=== PATIENT | female | born 1935 | race Caucasian/White ===

== ENCOUNTER 2018-02-19 13:05 | Emergency (ER) | payer MEDICARE, BC ==
[2018-02-19] MEDS ORDERED: Sodium Chloride 0.9% 5 ML Syringe FLUSH PRN (13:12)
--- NOTE | 2018-02-19 13:25 | EDM.PDOC ---
ED HPI GENERAL MEDICAL PROBLEM - General Chief Complaint: Syncope Stated Complaint: Syncope Time Seen by Provider: 02/19/18 13:14 Source of Information: Reports: Patient, EMS History Limitations: Reports: No Limitations - History of Present Illness INITIAL COMMENTS - FREE TEXT/NARRATIVE: 83 YO WF presents to ER by EMS after a syncopal episode while at the grocery store today. Pt states she remembers driving to the store but doesn't recall any events until paramedics arrived. Pt with PMH of NIDDM and HTN. Pt states she feels dizzy. Pt denies any weakness, no chest pain, no shortness of breath no recent illness- no N/V/D or fevers. Pt denies any headache but states her vision is a little blurry. Pt denies any neck pain or musculoskeletal injuries from her fall. Onset: Sudden Onset Date: 02/19/18 Location: Denies: Head, Face, Neck, Chest, Abdomen, Back, Pelvis, Upper Extremity, Left, Upper Extremity, Right, Lower Extremity, Left, Lower Extremity , Right Severity: Mild Improves with: Reports: None Worsens with: Reports: None Associated Symptoms: Denies: Confusion, Chest Pain, Cough, Diaphoresis, Headaches, Malaise, Nausea/Vomiting, Seizure, Shortness of Breath, Weakness Left Posterior Head Pain Score (Numeric/FACES): 2 - Related Data Allergies Allergy/AdvReac Type Severity Reaction Status Date / Time levofloxacin [From Levaquin] Allergy UNKNOWN Verified 02/19/18 13:46 Penicillins Allergy UNKNOWN Verified 02/19/18 13:46 Ieqyrqr-Hki-Hnq Reductase Allergy UNKNOWN Verified 02/19/18 13:46 Inhibitor Sulfa (Sulfonamide Allergy GI UPSET Verified 02/19/18 13:46 Antibiotics) Home Meds: Home Meds Aspirin [Halfprin] 81 mg PO BRK 04/07/16 [History] Hydrochlorothiazide 12.5 mg PO DAILY 04/07/16 [History] Levothyroxine 25 mcg PO ACBREAKFAST 04/07/16 [History] Metoprolol Succinate [Toprol XL] 100 mg PO DAILY 04/07/16 [History] Vit A/Vit C/Vit E/Zinc/Copper [Preservision] 2 tab PO DAILY 04/07/16 [History] metFORMIN [Glucophage XR] 500 mg PO BIDMEALS 04/07/16 [History] Losartan [Cozaar] 100 mg PO DAILY 06/09/16 [History] Social & Family History - Caffeine Use Caffeine Use: Reports: Coffee, Soda ED ROS GENERAL - Review of Systems Review Of Systems: See Below Constitutional: Reports: No Symptoms HEENT: Reports: No Symptoms Respiratory: Reports: No Symptoms Cardiovascular: Reports: No Symptoms Endocrine: Reports: No Symptoms GI/Abdominal: Reports: No Symptoms : Reports: No Symptoms Musculoskeletal: Reports: No Symptoms Skin: Reports: No Symptoms Neurological: Reports: No Symptoms Psychiatric: Reports: No Symptoms Hematologic/Lymphatic: Reports: No Symptoms Immunologic: Reports: No Symptoms - Physical Exam Exam: See Below Exam Limited By: No Limitations General Appearance: Alert, WD/WN, No Apparent Distress Eye Exam: Bilateral Eye: EOMI, PERRL Throat/Mouth: Normal Inspection, Normal Lips, Normal Teeth, Normal Gums, Normal Oropharynx, Normal Voice, No Airway Compromise Head Exam: Normocephalic, Scalp Swelling, Scalp Abrasions. No: Scalp Lacerations Neck: Normal Inspection, Supple, Non-Tender, Full Range of Motion Respiratory/Chest: No Respiratory Distress, Lungs Clear, Normal Breath Sounds, No Accessory Muscle Use, Chest Non-Tender Cardiovascular: Normal Peripheral Pulses, Regular Rate, Rhythm, No Edema, No Gallop, No JVD, No Murmur, No Rub GI/Abdominal: Normal Bowel Sounds, Soft, Non-Tender, No Organomegaly, No Distention, No Abnormal Bruit, No Mass Neuro Exam (Abbreviated): Alert, Oriented, CN II-XII Intact, Normal Cognition, Normal Gait, Normal Reflexes, No Motor/Sensory Deficits Back Exam: Normal Inspection, Full Range of Motion, NT Extremities: Normal Inspection, Normal Range of Motion, Non-Tender, No Pedal Edema, Normal Capillary Refill Psychiatric: Normal Affect, Normal Mood Skin Exam: Warm, Dry, Intact, Normal Color, No Rash EKG INTERPRETATION EKG Date: 02/19/18 Time: 14:02 Rhythm: NSR Rate (Beats/Min): 81 [place]: Normal P-Wave: Present QRS: LBBB ST-T: Normal QT: Normal Comparison: NA - No Prior EKG Course - Vital Signs Last Recorded V/S: Last Vital Signs Temp 36.6 C 02/19/18 13:29 Pulse 74 02/19/18 13:29 Resp 20 02/19/18 13:29 BP 148/78 H 02/19/18 13:29 Pulse Ox 94 L 02/19/18 13:29 - Orders/Labs/Meds Orders: Active Orders 24 hr Category Date Time Status Cardiac Monitoring [RC] . DIRECTED Care 02/19/18 13:12 Active EKG Documentation Completion [RC] ASDIRECTED Care 02/19/18 13:13 Active Oxygen Therapy Adult [Oxygen Therapy, ED] [RC] Care 02/19/18 13:12 Active ASDIRECTED Peripheral IV Care [RC] . DIRECTED Care 02/19/18 13:13 Active Chest 1V Frontal [CR] Stat Exams 02/19/18 13:12 Taken Head wo Cont [CT] Stat Exams 02/19/18 13:12 Taken Sodium Chloride 0.9% [Syrex Flush] Med 02/19/18 13:12 Active 5 ml FLUSH Q8HR PRN Peripheral IV Insertion Adult [OM.PC] Routine Oth 02/19/18 13:12 Ordered EKG 12 Lead [EK] Routine Ther 02/19/18 13:12 Ordered Medication Orders Sodium Chloride (Syrex Flush) 5 ml FLUSH Q8HR PRN PRN Reason: Keep Vein Open Labs: Laboratory Tests 02/19/18 02/19/18 02/19/18 Range/Units 13:15 13:15 13:15 WBC 9.8 (5.0-10.0) 10^3/uL RBC 4.79 (3.80-5.50) 10^6/uL Hgb 14.8 (12.0-16.0) g/dL Hct 45.0 (37.0-47.0) % MCV 93.9 H (82.0-92.0) fL MCH 30.8 (27.0-31.0) pg MCHC 32.8 (32.0-36.0) g/dL RDW 13.1 (11.5-14.5) % Plt Count 256 (150-300) 10^3/uL MPV 8.0 (7.4-10.4) fL Neut % (Auto) 69.9 (50.0-70.0) % Lymph % (Auto) 22.1 (20.0-40.0) % [place] % (Auto) 6.2 (2.0-8.0) % Eos % (Auto) 1.1 (1.0-3.0) % Baso % (Auto) 0.7 (0.0-1.0) % Neut # (Auto) 6.8 (2.5-7.0) 10^3/uL Lymph # (Auto) 2.2 (1.0-4.0) 10^3/uL [place] # (Auto) 0.6 (0.1-0.8) 10^3/uL Eos # (Auto) 0.1 (0.1-0.3) 10^3/uL Baso # (Auto) 0.1 (0.0-0.1) 10^3/uL PT 9.5 (8.9-11.4) SEC INR 0.9 (0.9-1.1) APTT 23.2 (20.8-31.2) SEC Sodium 142 (136-145) mmol/L Potassium 4.0 (3.3-5.3) mmol/L Chloride 103 (98-115) mmol/L Carbon Dioxide 27.4 (21.0-32.0) mmol/L BUN 20 (6-25) mg/dL Creatinine 0.73 (0.51-1.17) mg/dL Est Cr Clr Drug Dosing 62.04 mL/min Estimated GFR (MDRD) > 60 mL/min Glucose 185 H (70-110) mg/dL Calcium 9.4 (8.7-10.3) mg/dL Total Bilirubin 0.5 (0.2-1.0) mg/dL AST 19 (15-37) U/L ALT 19 (12-78) U/L Alkaline Phosphatase 122 H (46-116) IU/L Creatine Kinase 22 L (26-276) U/L CK-MB (CK-2) 0.70 (0.00-4.30) ng/mL Troponin I < 0.04 (0.00-0.070) ng/mL B-Natriuretic Peptide 100 (0-100) pg/mL Total Protein 6.5 (6.4-8.2) g/dL Albumin 2.99 L (3.00-4.80) g/dL Meds: Medications Generic Name Dose Route Start Last Admin Trade Name Freq PRN Reason Stop Dose Admin Sodium Chloride 5 ml 02/19/18 13:12 Syrex Flush FLUSH Q8HR PRN Keep Vein Open Discontinued Medications Generic Name Dose Route Start Last Admin Trade Name Freq PRN Reason Stop Dose Admin Ondansetron HCl Confirm 02/19/18 14:23 Zofran Administered 02/19/18 14:24 Dose 4 mg .ROUTE .Aviary ONE - Radiology Interpretation Free Text/Narrative:: CT Head- 8mm right sided subdural hematoma with leftward shift about 6mm; right frontotemporal subarachnoid CXR- NAD Departure - Departure Time of Disposition: 14:27 Disposition: DC/Tfer to Acute Hospital 02 Condition: Critical Clinical Impression: Subdural hematoma, Subarachnoid bleed Syncope Qualifiers: Encounter type: initial encounter - Discharge Information Referrals: Karena Dacosta, MAGNETIC TAPE COMPOSER OPERATOR [Primary Care Provider] - Forms: ED Department Discharge, Interfacility Transfer EMTALA - My Orders Last 24 Hours: My Active Orders 02/19/18 13:12 Cardiac Monitoring [RC] . DIRECTED Oxygen Therapy Adult [Oxygen Therapy, ED] [RC] ASDIRECTED Chest 1V Frontal [CR] Stat Head wo Cont [CT] Stat Sodium Chloride 0.9% [Syrex Flush] 5 ml FLUSH Q8HR PRN Peripheral IV Insertion Adult [OM.PC] Routine EKG 12 Lead [EK] Routine 02/19/18 13:13 EKG Documentation Completion [RC] ASDIRECTED Peripheral IV Care [RC] . DIRECTED - Assessment/Plan Last 24 Hours: My Active Orders 02/19/18 13:12 Cardiac Monitoring [RC] . DIRECTED Oxygen Therapy Adult [Oxygen Therapy, ED] [RC] ASDIRECTED Chest 1V Frontal [CR] Stat Head wo Cont [CT] Stat Sodium Chloride 0.9% [Syrex Flush] 5 ml FLUSH Q8HR PRN Peripheral IV Insertion Adult [OM.PC] Routine EKG 12 Lead [EK] Routine 02/19/18 13:13 EKG Documentation Completion [RC] ASDIRECTED Peripheral IV Care [RC] . DIRECTED Assessment:: 1, Subdural hematoma 2. small right subarachnoid bleed 3. syncopal episode Plan: 1. Transfer to [facility] for acute neurosurgical evaluation 2. DNR per son and living will 3. supportive care
[2018-02-19 13:52] VITALS: BP 148/78
[2018-02-19 14:01] LABS: CHLORIDE,CL 103 mmol/L (98-115); SODIUM,NA 142 mmol/L (136-145)
[2018-02-19] MEDS ORDERED: NACL IV ONE ×2 (14:06)
[2018-02-19] MEDS ORDERED: LEVETIRACETAM IV ONE ×2 (14:06)
[2018-02-19] MEDS ORDERED: Ondansetron 4 MG/2 ML SDV ONE (14:23)
[2018-02-19] MEDS ORDERED: levETIRAcetam 500 MG in Sodium Chloride 0.9% 100 ML IV ONE (14:43)
[2018-02-19] MEDS ORDERED: Ondansetron 4 MG/2 ML SDV IVPUSH ONE (14:43)
[2018-02-19] MEDS ORDERED: Sodium Chloride 0.9% 1,000 ML IV ONE (14:45)
== END 2018-02-19 15:20 ==
LOC: KA.ED 13:05
DX: R55 Syncope and collapse (principal); S06.6X9A Traumatic subarachnoid hemorrhage with loss of consciousness of unspecified duration, initial encounter; Z88.1 Allergy status to other antibiotic agents; Z88.0 Allergy status to penicillin; Z88.2 Allergy status to sulfonamides; Z79.899 Other long term (current) drug therapy; X58.XXXA Exposure to other specified factors, initial encounter
CPT/HCPCS: 36415; 70450; 71045; 80053; 82550; 82553; 83880; 84484; 85025; 85610; 85730; 93005; 96374; 96375; 99285; J2405; J7030

== ENCOUNTER 2018-03-01 12:00 | Inpatient (IN) | payer MEDICARE, BC ==
[2018-03-01] MEDS: Acetaminophen 500 MG Tab PO SCH (21:05)
[2018-03-02] MEDS: Levothyroxine 25 MCG Tab PO SCH (08:25)
[2018-03-02] MEDS: Acetaminophen 500 MG Tab PO SCH ×3 (08:26→21:03)
[2018-03-02] MEDS: metFORMIN 500 MG Tab PO SCH ×2 (08:26→19:43)
[2018-03-02] MEDS: Carvedilol 12.5 MG Tab PO SCH ×2 (08:27→19:43)
[2018-03-02] MEDS: amLODIPine 5 MG Tab PO SCH (08:28)
[2018-03-02] MEDS: Losartan 50 MG Tab PO SCH (08:31)
[2018-03-02] MEDS: Lutein/Minerals/Vitamins A, C & E Tab PO SCH (08:31)
[2018-03-02] MEDS ORDERED: Hydrochlorothiazide 25 MG Tab PO SCH (09:00)
--- NOTE | 2018-03-02 13:35 | PCM.HP ---
H&P History of Present Illness - General Date of Service: 03/02/18 Admit Problem/Dx: Admission Diagnosis/Problem Admission Diagnosis/Problem Debility Source of Information: Patient, Old Records History Limitations: Reports: Altered Mental Status - History of Present Illness Initial Comments - Free Text/Narative: Ms. Sen reports a mild headache this morning, not worse than prior, but persistent. She otherwise denies any complaints. She believes she is at [facility] and does not know the date or month, but is able to state her name and birthdate. She states she has been told she had a fall and hit her head, but doesn't remember anything about the incident. Nursing reports that her sons were at bedside earlier today and stated that her mentation waxes and wanes, as it has since her fall, but is stable in comparison to the last few days. Nursing reports that she is at least a 1 person assist with transfers and ambulation. Her sons state that she didn't have dementia or significant memory problems before her accident. - Related Data Allergies/Adverse Reactions: Allergies Allergy/AdvReac Type Severity Reaction Status Date / Time levofloxacin [From Levaquin] Allergy UNKNOWN Verified 03/01/18 13:21 Penicillins Allergy UNKNOWN Verified 03/01/18 13:21 Kvztzls-Hpk-Tmj Reductase Allergy UNKNOWN Verified 03/01/18 13:21 Inhibitor Sulfa (Sulfonamide Allergy GI UPSET Verified 03/01/18 13:21 Antibiotics) Home Medications: Home Meds Hydrochlorothiazide 25 mg PO DAILY 04/07/16 [History] Levothyroxine 25 mcg PO ACBREAKFAST 04/07/16 [History] Losartan [Cozaar] 100 mg PO DAILY 06/09/16 [History] Acetaminophen [Tylenol Extra Strength] 1,000 mg PO TID 03/01/18 [History] Carvedilol [Coreg] 25 mg PO BIDMEALS 03/01/18 [History] Insulin Glarg,Human.Rec.Analog [Lantus Solostar] 10 unit SQ DAILY 03/01/18 [ History] Lutein/Minerals/Vit A,C & E [Ocuvite] 2 tab PO DAILY 03/01/18 [History] amLODIPine Besylate [Norvasc] 10 mg PO DAILY 03/01/18 [History] metFORMIN [Glucophage] 500 mg PO BIDMEALS 03/01/18 [History] Past Medical History HEENT History: Reports: Macular Degeneration Cardiovascular History: Reports: High Cholesterol, Hypertension, Pulmonary Hypertension, Other (See Below) Other Cardiovascular History: palpitations Genitourinary History: Reports: Urinary Incontinence 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: Neurological History: Reports: Head Trauma, Speech Problems, Other (See Below) Other Neuro History: subdural hematoma with subarachnoidal bleed Psychiatric History: Reports: None Endocrine/Metabolic History: Reports: Diabetes, Type II, Hypothyroidism Oncologic (Cancer) History: Reports: Basal Cell Carcinoma, Breast Dermatologic History: Reports: Other (See Below) Other Dermatologic History: basal cell cancer of the skin - Infectious Disease History Infectious Disease History: Reports: Other (See Below) Other Infectious Disease History: pt does not know - Past Surgical History HEENT Surgical History: Reports: None Cardiovascular Surgical History: Reports: None GI Surgical History: Reports: Cholecystectomy Female Surgical History: Reports: Breast Biopsy, Mastectomy Neurological Surgical History: Reports: None Musculoskeletal Surgical History: Reports: Knee Replacement Oncologic Surgical History: Reports: Biopsy of Breast, Mastectomy Dermatological Surgical History: Reports: Skin Biopsy Social & Family History - Family History Cardiac: Reports: CAD (brother and sister) - Tobacco Use Smoking Status *Q: Never Smoker Second Hand Smoke Exposure: No - Caffeine Use Caffeine Use: Reports: Coffee, Soda - Recreational Drug Use Recreational Drug Use: No H&P Review of Systems - Review of Systems: Review Of Systems: See Below General: Reports: Weakness. Denies: Fever, Chills, Decreased Appetite HEENT: Reports: Headaches. Denies: Ear Pain, Eye Pain, Sore Throat Pulmonary: Denies: Shortness of Breath, Pleuritic Chest Pain, Cough, Sputum Cardiovascular: Denies: Chest Pain, Palpitations, Edema, Lightheadedness, Syncope Gastrointestinal: Denies: Abdominal Pain, Constipation, Diarrhea, Difficulty Swallowing, Nausea, Vomiting Genitourinary: Denies: Dysuria, Burning, Pain Musculoskeletal: Denies: Neck Pain, Back Pain, Joint Pain Skin: Reports: Bruising. Denies: Rash, Wound Psychiatric: Reports: Confusion, Hallucinations (Visual). Denies: Anxiety, Hallucinations (Auditory) Neurological: Reports: Confusion, Headache, Trouble Speaking, Weakness. Denies : Numbness, Seizure, Syncope, Tingling, Tremors Hematologic/Lymphatic: Reports: Easy Bleeding, Easy Bruising Exam - Exam Exam: See Below - Vital Signs Vital Signs: Last Vital Signs Temp 37.3 C 03/02/18 06:56 Pulse 76 03/02/18 11:00 Resp 18 03/02/18 06:56 BP 172/85 H 03/02/18 11:00 Pulse Ox 94 L 03/02/18 06:56 Weight: 97.324 kg - Exam Physical Exam Comments:: GENERAL: Elderly white female sitting in bedside chair in no acute distress. HEENT: Conjunctiva clear. PERRLA. EOMI with significant prompting to follow direction. Nares patent without discharge. Mucous membranes moist, posterior pharynx unremarkable. NECK: Supple, no masses. CV: Regular rate and rhythm, no murmurs, rubs, or gallops. 2+ radial pulses. PULMONARY: Normal effort, clear to auscultation bilaterally, no wheezes, rales, or rhonchi. ABDOMEN: Positive bowel sounds, soft, nontender, nondistended. EXTREMITIES: No edema, cyanosis, or clubbing. MUSCULOSKELETAL: Moves all extremities well. NEUROLOGICAL: CN II-XII intact. Strength 5/5 in distal extremities. Sensation to light touch intact in distal extremities. DTRs 2+/4. Babinski downgoing. No clonus. Coordination and gait not tested. DERMATOLOGIC: No rashes or suspicious lesions in exposed areas. PSYCHIATRIC: Alert, oriented only to person (not time, place, or detailed situation), interactive though with obvious confusion at times, appropriate affect. - Patient Data Lab Results Last 24 hrs: Laboratory Results - last 24 hr 03/01/18 03/02/18 03/02/18 Range/Units 21:04 06:25 11:38 POC Glucose 145 H 152 H 155 H (74-106) mg/dl Vinnie Results Last 24 hrs: Reviewed hospitalization laboratory and imaging results. Problem List Initiated/Reviewed/Updated: Yes Orders Last 24hrs: Active Orders 24 hr Category Date Time Status Patient Status [ADT] Routine ADT 03/01/18 19:32 Ordered Blood Glucose Check, Bedside [RC] WITHMEALSANDBED Care 03/01/18 19:32 Active Communication Order [RC] DAILY Care 03/01/18 15:26 Active Communication Order [RC] DAILY Care 03/01/18 15:28 Active Communication Order [RC] DAILY Care 03/01/18 15:29 Active Communication Order [RC] DAILY Care 03/01/18 15:30 Active Daily Weight [Height and Weight] [RC] 0700 Care 03/01/18 20:50 Active Oxygen Therapy [RC] PRN Care 03/01/18 19:32 Active Up With Assistance [RC] ASDIRECTED Care 03/01/18 19:32 Active Vital Signs [RC] 0700,1500 Care 03/01/18 19:32 Active Consult to Senior Corporate Recruiter [CONS] Routine Cons 03/01/18 19:32 Active PT Evaluation and Treatment [CONS] Routine Cons 03/01/18 19:32 Active [place] [employer] Diet [DIET] Diet 03/02/18 Breakfast Active BASIC METABOLIC PANEL,BMP [CHEM] AM Lab 03/04/18 05:11 Ordered Acetaminophen [Tylenol Extra Strength] Med 03/01/18 21:00 Active 1,000 mg PO TID Carvedilol [Coreg] Med 03/02/18 08:00 Active 25 mg PO BIDMEALS Hydrochlorothiazide Med 03/02/18 21:00 Active 25 mg PO BID Levothyroxine Med 03/02/18 07:30 Active 25 mcg PO ACBREAKFAST Losartan [Cozaar] Med 03/02/18 09:00 Active 100 mg PO DAILY Lutein/Minerals/Vit A,C & E [Ocuvite] Med 03/02/18 09:00 Active 2 each PO DAILY Melatonin Med 03/02/18 21:00 Ordered 6 mg PO BEDTIME amLODIPine [Norvasc] Med 03/02/18 09:00 Active 10 mg PO DAILY metFORMIN [Glucophage] Med 03/02/18 08:00 Active 500 mg PO BIDMEALS Antiembolic Hose [OM.PC] Routine Oth 03/01/18 19:32 Ordered Resuscitation Status Routine Resus Stat 03/01/18 19:32 Ordered Medication Orders Acetaminophen (Tylenol Extra Strength) 1,000 mg PO TID [facility] Last Admin: 03/02/18 08:26 Dose: 1,000 mg Admin: 03/01/18 21:05 Dose: 1,000 mg Amlodipine Besylate (Norvasc) 10 mg PO DAILY [facility] Last Admin: 03/02/18 08:28 Dose: 10 mg Carvedilol (Coreg) 25 mg PO BIDMEALS [facility] Last Admin: 03/02/18 08:27 Dose: 25 mg Hydrochlorothiazide (Hydrochlorothiazide) 25 mg PO BID [facility] Levothyroxine Sodium (Levothyroxine) 25 mcg PO ACBREAKFAST [facility] Last Admin: 03/02/18 08:25 Dose: 25 mcg Losartan Potassium (Cozaar) 100 mg PO DAILY [facility] Last Admin: 03/02/18 08:31 Dose: 100 mg Melatonin (Melatonin) 6 mg PO BEDTIME [facility] Metformin HCl (Glucophage) 500 mg PO BIDMEALS [facility] Last Admin: 03/02/18 08:26 Dose: 500 mg Multivitamins/Minerals (Ocuvite) 2 each PO DAILY [facility] Last Admin: 03/02/18 08:31 Dose: 2 each Assessment/Plan Comment:: HPI summary: 83yoF with history notable for recurrent falls, hypertension, pulmonary hypertension, chronic diastolic heart failure, and DMT2, who sustained an unwitnessed fall with LOC of unspecified duration found to have cephalohematoma with countercoup right-sided acute subdural hematoma with subarachnoid hemorrhage. She was initially evaluated at [facility] and transferred to [facility], where she was hospitalized from 02/19/[address] head was stable and neurosurgery followed and conservatively managed. Headache pain was treated with Tylenol and gabapentin early in hospitalization and Tylenol scheduled later in her stay. Her BP was difficult to control and multiple adjustments were made. She also experienced delirium and visual hallucinations during her stay. Additionally, she was treated for a UTI during the hospitalization. It was determined that she required half-way care and was discharged to [facility] for physical therapy rehabilitation and further placement assistance. Hospitalization problems: # Debility # Recurrent falls and syncopal episodes Prior Holter monitor and hospital rhythm monitoring unremarkable. Zio patch in place. - Fall precautions - Activity level up with assistance - Physical therapy consultation # Cephalohematoma with countercoup right-sided acute subdural hematoma with subarachnoid hemorrhage # Encephalopathy with hallucinations secondary to intracranial abnormalities, as above Neuro exam normal today. Encephalopathy likely related to hemorrhage, prolonged hospitalization, and age. - Tylenol 1000mg TID - Melatonin 6mg qHS for delirium prophylaxis - 04/10/[address] head at [facility] # Hypertension # Chronic diastolic heart failure # Pulmonary hypertension, moderate-severe BPs elevated this morning. Volume status neutral. Pulmonary hypertension thought to be secondary to possible obesity and YAYA. - BPs BID - Daily weight - Losartan 100mg, amlodipine 10mg, carvedilol 25mg BID, HCTZ 25mg BID ( increased from prior regimen) - 04/17/18 sleep medicine appointment at [facility] # Diabetes mellitus, type II 02/20/18 A1c 5.8%. Previously on metformin exclusively, which was held during hospitalization when Lantus was started. - Discontinue insulin - Restart metformin 500mg BID - Monitor BGs QID for the next few days and if well-controlled, will back off. Chronic, stable conditions: # Hypothyroidism: 06/06/17 TSH wnl. Levothyroine 25mcg daily. # Hyperlipidemia: 06/06/17 lipid panel with fairly good control. Intolerant of statins. ASA held in setting of intracranial hemorrhage. # Obesity: BMI 37. Healthy diet. Physical activity per physical therapy. # Macular degeneration. Stable. Eye vitamin daily. Hospitalization details: # FEN: No IVF. Electrolytes normal on 03/01/18. Diabetic diet. # PPX: DVT ppx with compression stockings; pharmacologic ppx contraindicated in setting of intracranial hemorrhage. # Code status: DNR/DNI. # Emergency contact: Sons, who were updated by nursing at bedside this morning. # Disposition: Admit to [facility] status for physical therapy rehabilitation. She most likely will require half-way facility placement and social service consultation has been placed to assist with this. She has been scheduled on 03/11/18 for hospitalization follow-up appointment with PCP Karena Dacosta APRN CNP, at [facility].
[2018-03-02] MEDS ORDERED: Melatonin 3 MG Tab PO SCH (21:00)
[2018-03-02] MEDS ORDERED: Insulin Detemir 100 Units/ML 3 ML Pen SUBCUT SCH (21:00)
[2018-03-02] MEDS: Hydrochlorothiazide 25 MG Tab PO SCH (21:04)
[2018-03-03] MEDS: metFORMIN 500 MG Tab PO SCH ×2 (09:44→17:54)
[2018-03-03] MEDS: Lutein/Minerals/Vitamins A, C & E Tab PO SCH (09:44)
[2018-03-03] MEDS: Carvedilol 12.5 MG Tab PO SCH ×2 (09:45→17:57)
[2018-03-03] MEDS: amLODIPine 5 MG Tab PO SCH (09:45)
[2018-03-03] MEDS: Losartan 50 MG Tab PO SCH (09:46)
[2018-03-03] MEDS: Hydrochlorothiazide 25 MG Tab PO SCH ×2 (09:47→22:07)
[2018-03-03] MEDS: Levothyroxine 25 MCG Tab PO SCH (09:50)
[2018-03-03] MEDS: Acetaminophen 500 MG Tab PO SCH ×3 (10:22→22:09)
[2018-03-03] MEDS ORDERED: Carvedilol 6.25 MG Tab ONE (17:53)
[2018-03-03] MEDS ORDERED: Melatonin 3 MG Tab PO SCH (21:00)
[2018-03-04] MEDS: metFORMIN 500 MG Tab PO SCH ×2 (07:42→18:02)
[2018-03-04] MEDS: Levothyroxine 25 MCG Tab PO SCH (07:42)
[2018-03-04] MEDS: Carvedilol 12.5 MG Tab PO SCH ×2 (07:42→18:06)
[2018-03-04 08:31] LABS: CHLORIDE,CL 92 mmol/L (98-115); SODIUM,NA 125 mmol/L (136-145)
[2018-03-04] MEDS ORDERED: Acetaminophen 325 MG Tab ONE (10:05)
[2018-03-04] MEDS: Acetaminophen 500 MG Tab PO SCH (10:09)
[2018-03-04] MEDS: Losartan 50 MG Tab PO SCH (10:09)
[2018-03-04] MEDS: Lutein/Minerals/Vitamins A, C & E Tab PO SCH (10:10)
[2018-03-04] MEDS: Hydrochlorothiazide 25 MG Tab PO SCH ×2 (10:10→18:03)
[2018-03-04] MEDS: amLODIPine 5 MG Tab PO SCH (10:10)
[2018-03-04] MEDS ORDERED: Acetaminophen 500 MG Tab PO PRN (10:17)
[2018-03-04] MEDS: Spironolactone 25 MG Tab PO SCH (10:34)
[2018-03-04] MEDS: Sodium Chloride 1 GM Tab PO SCH ×2 (10:36→21:58)
[2018-03-05] MEDS: Levothyroxine 25 MCG Tab PO SCH (07:39)
[2018-03-05 07:50] LABS: CHLORIDE,CL 96 mmol/L (98-115); SODIUM,NA 131 mmol/L (136-145)
[2018-03-05] MEDS: amLODIPine 5 MG Tab PO SCH (08:10)
[2018-03-05] MEDS: Spironolactone 25 MG Tab PO SCH (08:10)
[2018-03-05] MEDS: metFORMIN 500 MG Tab PO SCH ×2 (08:10→17:38)
[2018-03-05] MEDS: Sodium Chloride 1 GM Tab PO SCH ×2 (08:10→21:21)
[2018-03-05] MEDS: Losartan 50 MG Tab PO SCH (08:10)
[2018-03-05] MEDS: Carvedilol 12.5 MG Tab PO SCH ×2 (08:10→17:38)
[2018-03-05] MEDS: Hydrochlorothiazide 25 MG Tab PO SCH ×2 (08:10→17:38)
[2018-03-05] MEDS: Lutein/Minerals/Vitamins A, C & E Tab PO SCH (08:10)
[2018-03-06 07:49] LABS: CHLORIDE,CL 95 mmol/L (98-115); SODIUM,NA 137 mmol/L (136-145)
[2018-03-06] MEDS: Levothyroxine 25 MCG Tab PO SCH (08:19)
[2018-03-06] MEDS: Hydrochlorothiazide 25 MG Tab PO SCH ×2 (08:20→17:10)
[2018-03-06] MEDS: Sodium Chloride 1 GM Tab PO SCH ×2 (08:21→21:16)
[2018-03-06] MEDS: Losartan 50 MG Tab PO SCH (08:21)
[2018-03-06] MEDS: Carvedilol 12.5 MG Tab PO SCH ×2 (08:21→17:12)
[2018-03-06] MEDS: metFORMIN 500 MG Tab PO SCH ×2 (08:24→18:40)
[2018-03-06] MEDS: Lutein/Minerals/Vitamins A, C & E Tab PO SCH (08:25)
[2018-03-06] MEDS: Spironolactone 25 MG Tab PO SCH (08:25)
[2018-03-06] MEDS: amLODIPine 5 MG Tab PO SCH (08:26)
[2018-03-07] MEDS: Levothyroxine 25 MCG Tab PO SCH (08:04)
[2018-03-07] MEDS: Carvedilol 12.5 MG Tab PO SCH ×2 (08:05→17:11)
[2018-03-07] MEDS: metFORMIN 500 MG Tab PO SCH ×2 (08:07→17:15)
[2018-03-07] MEDS: Lutein/Minerals/Vitamins A, C & E Tab PO SCH (08:52)
[2018-03-07] MEDS ORDERED: Nitrofurantoin Monohydrate/Macrocrystalline 100 MG Cap PO SCH (09:00)
[2018-03-07] MEDS: Sodium Chloride 1 GM Tab PO SCH ×2 (09:44→21:06)
[2018-03-07] MEDS: amLODIPine 5 MG Tab PO SCH (09:47)
[2018-03-07] MEDS: Losartan 50 MG Tab PO SCH (09:51)
[2018-03-07] MEDS: Hydrochlorothiazide 25 MG Tab PO SCH ×2 (09:52→17:11)
[2018-03-07] MEDS: Spironolactone 25 MG Tab PO SCH (09:52)
[2018-03-07] MEDS: cefTRIAXone 1 GM Vial IM SCH (10:07)
[2018-03-08] MEDS: Levothyroxine 25 MCG Tab PO SCH (07:32)
[2018-03-08] MEDS: Spironolactone 25 MG Tab PO SCH (08:01)
[2018-03-08] MEDS: Carvedilol 12.5 MG Tab PO SCH ×2 (08:01→17:46)
[2018-03-08] MEDS: Losartan 50 MG Tab PO SCH (08:02)
[2018-03-08] MEDS: metFORMIN 500 MG Tab PO SCH ×2 (08:02→17:46)
[2018-03-08] MEDS: Sodium Chloride 1 GM Tab PO SCH ×2 (08:03→20:39)
[2018-03-08] MEDS: Hydrochlorothiazide 25 MG Tab PO SCH ×2 (08:03→17:46)
[2018-03-08] MEDS: Lutein/Minerals/Vitamins A, C & E Tab PO SCH (08:03)
[2018-03-08] MEDS: amLODIPine 5 MG Tab PO SCH (08:04)
[2018-03-08] MEDS: cefTRIAXone 1 GM Vial IM SCH (09:58)
[2018-03-08] MEDS: Dextrose 5%-0.9% NaCl 1,000 ML IV SCH (10:10)
[2018-03-08] MEDS: cefTRIAXone 1 GM Vial IV SCH (10:14)
[2018-03-09] MEDS: Dextrose 5%-0.9% NaCl 1,000 ML IV SCH (05:39)
[2018-03-09] MEDS: Levothyroxine 25 MCG Tab PO SCH (07:17)
[2018-03-09] MEDS: Sodium Chloride 1 GM Tab PO SCH ×2 (08:21→20:12)
[2018-03-09] MEDS: Hydrochlorothiazide 25 MG Tab PO SCH ×2 (08:21→18:01)
[2018-03-09] MEDS: Spironolactone 25 MG Tab PO SCH (08:21)
[2018-03-09] MEDS: Carvedilol 12.5 MG Tab PO SCH ×2 (08:21→18:01)
[2018-03-09] MEDS: metFORMIN 500 MG Tab PO SCH ×2 (08:21→18:00)
[2018-03-09] MEDS: amLODIPine 5 MG Tab PO SCH (08:22)
[2018-03-09] MEDS: Lutein/Minerals/Vitamins A, C & E Tab PO SCH (08:22)
[2018-03-09] MEDS: Losartan 50 MG Tab PO SCH (08:22)
[2018-03-09] MEDS: cefTRIAXone 1 GM Vial IV SCH (10:02)
[2018-03-09] MEDS: Sulfamethoxazole/Trimethoprim 800-160 MG Tab PO SCH (18:02)
[2018-03-10] MEDS: Dextrose 5%-0.9% NaCl 1,000 ML IV SCH ×2 (01:26→20:58)
[2018-03-10] MEDS: Sodium Chloride 1 GM Tab PO SCH ×2 (08:03→20:58)
[2018-03-10] MEDS: metFORMIN 500 MG Tab PO SCH ×2 (08:03→18:04)
[2018-03-10] MEDS: Levothyroxine 25 MCG Tab PO SCH (08:04)
[2018-03-10] MEDS: Hydrochlorothiazide 25 MG Tab PO SCH ×2 (08:04→18:04)
[2018-03-10] MEDS: Lutein/Minerals/Vitamins A, C & E Tab PO SCH (08:04)
[2018-03-10] MEDS: Spironolactone 25 MG Tab PO SCH (08:05)
[2018-03-10] MEDS: Carvedilol 12.5 MG Tab PO SCH ×2 (08:05→18:03)
[2018-03-10] MEDS: amLODIPine 5 MG Tab PO SCH (08:06)
[2018-03-10] MEDS: Losartan 50 MG Tab PO SCH (08:06)
[2018-03-10] MEDS: Sulfamethoxazole/Trimethoprim 800-160 MG Tab PO SCH ×2 (08:08→18:06)
[2018-03-10] MEDS: traZODone 50 MG Tab PO SCH (20:58)
[2018-03-11] MEDS: Levothyroxine 25 MCG Tab PO SCH (08:10)
[2018-03-11] MEDS: Carvedilol 12.5 MG Tab PO SCH ×2 (08:14→22:00)
[2018-03-11] MEDS: metFORMIN 500 MG Tab PO SCH ×2 (08:16→22:00)
[2018-03-11] MEDS: Sulfamethoxazole/Trimethoprim 800-160 MG Tab PO SCH ×2 (08:18→22:01)
[2018-03-11] MEDS: amLODIPine 5 MG Tab PO SCH (09:44)
[2018-03-11] MEDS: Losartan 50 MG Tab PO SCH (09:48)
[2018-03-11] MEDS: Spironolactone 25 MG Tab PO SCH (09:49)
[2018-03-11] MEDS: Lutein/Minerals/Vitamins A, C & E Tab PO SCH (09:51)
[2018-03-11] MEDS: Hydrochlorothiazide 25 MG Tab PO SCH ×2 (09:51→22:00)
[2018-03-11] MEDS: Sodium Chloride 1 GM Tab PO SCH ×2 (09:52→22:01)
[2018-03-11 10:43] LABS: CHLORIDE,CL 100 mmol/L (98-115); SODIUM,NA 134 mmol/L (136-145)
--- NOTE | 2018-03-11 15:10 | PN ---
03/11/2018 PATIENT NAME: BUZZ MATOS SUBJECTIVE: This is an 83-year-old female patient who was living by herself at home. She had fallen at home unwitnessed and sustained a cephalohematoma with contrecoup right-sided acute subdural hematoma with subarachnoid hemorrhage. She was in [place], hospitalized from 02/19 through 03/01, where she had multiple head CTs. She was seen by Neurosurgery. Neurosurgery decided she was a nonsurgical candidate and felt conservative management would be the best treatment for the patient. Headaches were treated with Tylenol and gabapentin. In [place], the patient was having visual hallucinations. She was sent to the [facility] for determination of a followup care. She is going to need fdc home versus being discharged home. On exam today, the patient does answer simple questions. She can focus very well. She seems to wax and wane on her orientation. She answer simple questions, but does not know which city or any date. OBJECTIVE: VITAL SIGNS: Today, her weight is 191 pounds. Pulse is 68, blood pressure is 138/64, respiratory rate is 20, oxygen saturations are 93% on room air. GENERAL: This is an elderly white female, in no acute distress. She is disoriented most of time, but she can answer simple questions. HEART: Tones are distant, but regular rate and rhythm. No murmurs identified. ABDOMEN: Soft, nontender, nondistended. Bowel sounds present x4. LUNGS: Sounds are clear in upper lobes. Diminished at bilateral bases. LABORATORY DATA: The patient did not have any lab work obtained today. IMPRESSION AND PLAN: 1. Status post fall sustaining a cephalohematoma with contrecoup right-sided acute subdural hematoma with subacromial hemorrhage. Plan the patient was evaluated by Neurosurgery, not a surgical candidate. She does have a followup scheduled with Neurosurgery on 04/10 with a repeat CAT scan at that time. The patient's condition has not worsened or improved. At this time, we will continue to monitor. 2. Dehydration due to poor appetite and poor fluid intake. On Sunday, the patient was found to have lost considerable weight since admission. On weight admission, she was weighed at 218. On Sunday, she was down to 188. Her I's and O's were, she had a little bit of any intake. I started her on some D5 one half normal saline at 50 mL an hour. I did speak with the patient's son, Andrew regarding that this is not a life-saving measure just for dehydration with her poor appetite and oral intake at this time. He was in agreement to start the IV fluids. 3. Urinary tract infection. Plan, the patient's urinalysis that was obtained last Sunday came back on Sunday is showing many bacteria. I did start the patient on Bactrim DS twice a day for three days. May consider repeating a urinalysis tomorrow morning. She does have a Cardona catheter in place at this time. Chronic conditions. 4. Hypertension. Plan, continue with amlodipine 10 mg daily, Coreg 25 mg twice a day, HCTZ 25 mg twice a day, losartan 100 mg daily, spironolactone 12.5 mg daily. Blood pressures have been fairly well controlled. 5. History of hypothyroidism. Plan, continue with levothyroxine 25 mcg daily. 6. History of diabetes mellitus type 2. Plan, continue with metformin 500 mg twice a day along with ADA diet. The patient's blood sugars have actually been fairly well controlled due to she is not eating very much. 7. Hyponatremia. Plan, continue with sodium chloride 1 g twice a day. The patient's last chemistry panel was back on 03/06/2018, which showed sodium within normal range at 137, chloride was low at 95. I am going to repeat a basic metabolic panel today just to check those levels after starting IV fluids. 8. Difficulty sleeping while here in the hospital. I did start the patient on trazodone 50 mg at bedtime as needed for sleep. OVERALL PLAN: Director Of Product Design did see the patient today. I spoke with Director Of Product Design. The patient is not improving neurologically. She is not deteriorating. Long-term plan would most likely be fci placement. She is going to start working on trying to find fci placement for the patient at this time. She will speak with the patient's son, Andrew, who is the OA. As far as any change today, the only thing we will do today is check a basic metabolic panel. /[id number]/MODL
[2018-03-11] MEDS: Dextrose 5%-0.9% NaCl 1,000 ML IV SCH (17:28)
[2018-03-11] MEDS: traZODone 50 MG Tab PO SCH (22:01)
[2018-03-12] MEDS: metFORMIN 500 MG Tab PO SCH ×2 (10:23→17:58)
[2018-03-12] MEDS: Levothyroxine 25 MCG Tab PO SCH (10:23)
[2018-03-12] MEDS: Carvedilol 12.5 MG Tab PO SCH ×2 (10:23→17:58)
[2018-03-12] MEDS: Sulfamethoxazole/Trimethoprim 800-160 MG Tab PO SCH ×2 (10:23→17:58)
[2018-03-12] MEDS: Lutein/Minerals/Vitamins A, C & E Tab PO SCH (10:24)
[2018-03-12] MEDS: Losartan 50 MG Tab PO SCH (10:24)
[2018-03-12] MEDS: amLODIPine 5 MG Tab PO SCH (10:24)
[2018-03-12] MEDS: Sodium Chloride 1 GM Tab PO SCH ×2 (10:24→20:46)
[2018-03-12] MEDS: Spironolactone 25 MG Tab PO SCH (10:24)
[2018-03-12] MEDS: Hydrochlorothiazide 25 MG Tab PO SCH ×2 (10:24→17:58)
[2018-03-12] MEDS: Dextrose 5%-0.9% NaCl 1,000 ML IV SCH (13:30)
[2018-03-12] MEDS: traZODone 50 MG Tab PO SCH (20:46)
[2018-03-13] MEDS: Lutein/Minerals/Vitamins A, C & E Tab PO SCH (08:20)
[2018-03-13] MEDS: Sodium Chloride 1 GM Tab PO SCH ×2 (08:20→20:28)
[2018-03-13] MEDS: Hydrochlorothiazide 25 MG Tab PO SCH ×2 (08:21→18:00)
[2018-03-13] MEDS: metFORMIN 500 MG Tab PO SCH ×2 (08:21→18:00)
[2018-03-13] MEDS: Spironolactone 25 MG Tab PO SCH (08:21)
[2018-03-13] MEDS: Carvedilol 12.5 MG Tab PO SCH ×2 (08:22→18:00)
[2018-03-13] MEDS: Losartan 50 MG Tab PO SCH (08:23)
[2018-03-13] MEDS: Levothyroxine 25 MCG Tab PO SCH (08:24)
[2018-03-13] MEDS: amLODIPine 5 MG Tab PO SCH (08:25)
--- NOTE | 2018-03-13 12:23 | PN ---
03/13/2018 PATIENT NAME: STEFANIE MATOS SHORT NOTE Stefanie is an elderly female patient who is in the swing bed unit due to debilitation receiving services for strength and endurance. Her history is inclusive of a cephalohematoma with contrecoup right-sided acute subdural hematoma with subarachnoid hemorrhage. Her secondary diagnosis includes encephalopathy with hallucinations secondary to the intracranial abnormalities as previously stated. It is reported per nursing staff today that the patient is taking fluids very well. Therefore, request to stop IV fluids. IV fluids will be discontinued. Also, the patient has had episodes of insomnia. Previously melatonin 6 mg was trialed. The patient had increased daytime sleepiness due to the 6 mg of the melatonin. We will initiate 3 mg of melatonin and evaluate her sleep patterns and also daytime drowsiness. Nursing staff will report the effectiveness of the medication. /[id number]/MODL MTDD
[2018-03-13] MEDS: traZODone 50 MG Tab PO SCH (20:28)
[2018-03-14] MEDS: Melatonin 3 MG Tab PO PRN ×2 (00:35→21:15)
[2018-03-14] MEDS: Levothyroxine 25 MCG Tab PO SCH (06:40)
[2018-03-14] MEDS: amLODIPine 5 MG Tab PO SCH (08:07)
[2018-03-14] MEDS: Losartan 50 MG Tab PO SCH (08:08)
[2018-03-14] MEDS: Sodium Chloride 1 GM Tab PO SCH ×2 (08:08→21:15)
[2018-03-14] MEDS: Lutein/Minerals/Vitamins A, C & E Tab PO SCH (08:08)
[2018-03-14] MEDS: metFORMIN 500 MG Tab PO SCH ×2 (08:08→18:13)
[2018-03-14] MEDS: Hydrochlorothiazide 25 MG Tab PO SCH ×2 (08:08→18:13)
[2018-03-14] MEDS: Spironolactone 25 MG Tab PO SCH (08:08)
[2018-03-14] MEDS: Carvedilol 12.5 MG Tab PO SCH ×2 (08:09→18:13)
[2018-03-14] MEDS: traZODone 50 MG Tab PO SCH (21:15)
[2018-03-15] MEDS: Levothyroxine 25 MCG Tab PO SCH (06:30)
[2018-03-15] MEDS: Carvedilol 12.5 MG Tab PO SCH ×2 (08:23→17:17)
[2018-03-15] MEDS: metFORMIN 500 MG Tab PO SCH ×2 (08:23→17:16)
[2018-03-15] MEDS: Spironolactone 25 MG Tab PO SCH (08:24)
[2018-03-15] MEDS: Losartan 50 MG Tab PO SCH (08:25)
[2018-03-15] MEDS: Lutein/Minerals/Vitamins A, C & E Tab PO SCH (10:00)
[2018-03-15] MEDS: Sodium Chloride 1 GM Tab PO SCH ×2 (10:00→21:03)
[2018-03-15] MEDS: amLODIPine 5 MG Tab PO SCH (10:00)
[2018-03-15] MEDS: Hydrochlorothiazide 25 MG Tab PO SCH ×2 (10:00→17:17)
[2018-03-15] MEDS: Melatonin 3 MG Tab PO PRN (21:03)
[2018-03-15] MEDS: traZODone 50 MG Tab PO SCH (21:03)
[2018-03-16] MEDS: Levothyroxine 25 MCG Tab PO SCH (10:56)
[2018-03-16] MEDS: Carvedilol 12.5 MG Tab PO SCH ×2 (10:57→17:54)
[2018-03-16] MEDS: metFORMIN 500 MG Tab PO SCH ×2 (10:57→17:43)
[2018-03-16] MEDS: Hydrochlorothiazide 25 MG Tab PO SCH ×2 (10:58→17:43)
[2018-03-16] MEDS: Spironolactone 25 MG Tab PO SCH (10:58)
[2018-03-16] MEDS: Losartan 50 MG Tab PO SCH (10:59)
[2018-03-16] MEDS: amLODIPine 5 MG Tab PO SCH (10:59)
[2018-03-16] MEDS: Sodium Chloride 1 GM Tab PO SCH ×2 (10:59→20:54)
[2018-03-16] MEDS: Lutein/Minerals/Vitamins A, C & E Tab PO SCH (11:00)
[2018-03-16] MEDS: Melatonin 3 MG Tab PO PRN (20:54)
[2018-03-16] MEDS: traZODone 50 MG Tab PO SCH (20:54)
[2018-03-17] MEDS: Levothyroxine 25 MCG Tab PO SCH (06:30)
[2018-03-17] MEDS: metFORMIN 500 MG Tab PO SCH ×2 (10:01→17:13)
[2018-03-17] MEDS: amLODIPine 5 MG Tab PO SCH (10:02)
[2018-03-17] MEDS: Hydrochlorothiazide 25 MG Tab PO SCH ×2 (10:02→17:13)
[2018-03-17] MEDS: Lutein/Minerals/Vitamins A, C & E Tab PO SCH (10:02)
[2018-03-17] MEDS: Sodium Chloride 1 GM Tab PO SCH ×2 (10:03→20:37)
[2018-03-17] MEDS: Spironolactone 25 MG Tab PO SCH (10:03)
[2018-03-17] MEDS: Carvedilol 12.5 MG Tab PO SCH ×2 (10:03→17:28)
[2018-03-17] MEDS: Losartan 50 MG Tab PO SCH (10:03)
[2018-03-17] MEDS: traZODone 50 MG Tab PO SCH (20:37)
[2018-03-18] MEDS: Levothyroxine 25 MCG Tab PO SCH (06:30)
[2018-03-18] MEDS: Carvedilol 12.5 MG Tab PO SCH (08:07)
[2018-03-18] MEDS: metFORMIN 500 MG Tab PO SCH (08:07)
[2018-03-18] MEDS: Losartan 50 MG Tab PO SCH (08:08)
[2018-03-18] MEDS: amLODIPine 5 MG Tab PO SCH (08:08)
[2018-03-18] MEDS: Sodium Chloride 1 GM Tab PO SCH (08:08)
[2018-03-18] MEDS: Lutein/Minerals/Vitamins A, C & E Tab PO SCH (08:08)
[2018-03-18] MEDS: Spironolactone 25 MG Tab PO SCH (08:08)
[2018-03-18] MEDS: Hydrochlorothiazide 25 MG Tab PO SCH (08:08)
[2018-03-18 08:24] VITALS: BP 119/72
--- NOTE | 2018-03-18 13:35 | DISCH ---
ADMITTING DIAGNOSIS: Status post fall sustaining a cephalohematoma with contrecoup right-sided acute subdural hematoma with subarachnoid hemorrhage. FINAL DIAGNOSES: Status post fall sustaining a cephalohematoma with contrecoup right-sided acute subdural hematoma with subarachnoid hemorrhage. BRIEF HISTORY AND ESSENTIAL PHYSICAL FINDINGS: This is an 83-year-old female patient who was living by herself at home. She had fallen at home unwitnessed and sustained a cephalohematoma with contrecoup right-sided acute subdural hematoma with subarachnoid hemorrhage. She was in [place], hospitalized from 02/19/2018 through 03/01/2018, and then she was transferred here for swing bed status. The patient had multiple head CTs while she was in [place] at the hospital. She was seen by Neurosurgery. Neurosurgery decided that she was a nonsurgical candidate and felt conservative management would be the best treatment for the patient. She was having headaches in [place], and they were treated with Tylenol and gabapentin. In [place], the patient was having some visual hallucinations. Eventually, gabapentin was discontinued. She was sent to the [facility] for swing bed. The patient has been very in an out since she has been here at the hospital, some day, she is more talkative and eats, and other day, she is very drowsy and will not answer questions. On exam today, the patient is nonverbal. She did open her eyes and look at me. She will nod to simple questions. Nursing staff says that some day she will eat really good and look around and actually speak. She says on her bad days, she is not really alert. Her orientation seems to wax and wane. SIGNIFICANT LABS XRAYS AND CONSULTATION FINDINGS: The patient's head CTs that she had in [place], no acute changes were seen from original CAT scan. The patient's lab work that she had while here for swing bed; she had a basic metabolic panel obtained on 03/04/2018, which showed a sodium low at 125, chloride low at 92, otherwise unremarkable. Repeat lab work on 03/05/2018 showed sodium up to 131, chloride up to 96. Rest of her labs were unremarkable. Repeat lab work on 03/06/2018 showed a basic metabolic panel with a sodium within normal range at 137, chloride up to 95. The rest of the panel was unremarkable except for glucose was slightly elevated. Repeat lab work on 03/11/2018 showed a sodium just slightly low at 134, otherwise unremarkable. The patient had a urinalysis on 03/12/2018, which was unremarkable also COURSE IN HOSPITAL WITH COMPLICATIONS IF ANY: Since the patient has been admitted, she has been kind of waxing and waning in and out of being able to speak and eat. Some days, she will be eat very well; some days, she will not eat much at all; some days, she will answer simple questions and speak with staff members and family members, and other days, she is very drowsy and just will not answer questions. No other medical concerns. CONDITION TREATMENT AND FINAL DISPOSITION ON DISCHARGE AND PROGNOSIS: Condition is stable. Final disposition would be [facility] in [place], [place]. IMPRESSION AND PLAN: 1. Status post fall sustaining a cephalohematoma with contrecoup right-sided acute subdural hematoma with subarachnoid hemorrhage. Plan: The patient has been stable. She does have a followup scheduled on 04/10/2018 with repeat CAT scan of the brain on 04/10/2018. I did obtain a CAT scan of the brain today before discharge due to family's concerns and just one obtained prior to discharge. Ct of head today shows interval resolution of head bleeds per radiology. The patient's condition has not worsened or improved at this time. We will continue to monitor and discharge her to [facility]. 2. Recent urinary tract infection. Plan: The patient's urinalysis that was obtained on admission showed many bacteria. Repeat urinalysis that was obtained on 03/12 was unremarkable. The patient had finished a course of Bactrim DS. Chronic conditions: 3. Hypertension: Plan: Continue the patient on amlodipine 10 mg daily along with Coreg 25 mg twice a day. Also continue with hydrochlorothiazide 25 mg twice a day, losartan 100 mg daily, spironolactone 12.5 mg daily. Blood pressure is in the hospital have been fairly well controlled. 4. History of hypothyroidism. Plan: Continue with levothyroxine 25 mcg daily. 5. History of diabetes mellitus type 2. Plan: Continue with metformin 500 mg twice a day along with ADA diet. The patient's blood sugars actually have been fairly well controlled depending on how much she eats. 6. Hyponatremia. Plan: The patient's sodium has been fairly well controlled. She went from 137 to 134 on her sodium level, but we will continue with sodium chloride 1 g twice a day. She will most likely need a basic metabolic panel at [facility]up [facility] the [facility]. The patient's last chemistry panel showed a sodium of 134. 7. Difficulty sleeping while not at home. Plan: I did start the patient on trazodone 50 mg at bedtime as needed for sleep. OVERALL PLAN: Social Service had contacted [facility] in [place], they accepted the patient. The patient will be discharged there today. The patient has been stable as far as her neurological status. She is not really deteriorating or improving. Her son, Andrew, who is her DPOA is in agreement to transfer the patient to prison today. I also did check a CBC prior to discharge, that was unremarkable. /[id number]/MODL MTDD
== END 2018-03-18 11:35 | DRG 948 ==
LOC: KA.MS 18:02
PROVIDERS: ADMIT Family Medicine; ATTEND Family Medicine
DX: R53.81 Other malaise (principal); N39.0 Urinary tract infection, site not specified; E87.1 Hypo-osmolality and hyponatremia; I50.32 Chronic diastolic (congestive) heart failure; S06.5X9D Traumatic subdural hemorrhage with loss of consciousness of unspecified duration, subsequent encounter; I11.0 Hypertensive heart disease with heart failure; W19.XXXD Unspecified fall, subsequent encounter; Z68.37 Body mass index [BMI] 37.0-37.9, adult; E03.9 Hypothyroidism, unspecified; E11.9 Type 2 diabetes mellitus without complications; E86.0 Dehydration; G47.8 Other sleep disorders; R51 Headache; R41.82 Altered mental status, unspecified; I27.20 Pulmonary hypertension, unspecified; E78.5 Hyperlipidemia, unspecified; E66.9 Obesity, unspecified; H35.30 Unspecified macular degeneration; Z88.0 Allergy status to penicillin; Z88.8 Allergy status to other drugs, medicaments and biological substances; Z79.899 Other long term (current) drug therapy; Z79.4 Long term (current) use of insulin; Z85.828 Personal history of other malignant neoplasm of skin
CPT/HCPCS: 36415; 51702; 51798; 70450; 80048; 81001; 82962; 85025; 87077; 87086; 87088; 87186; 97110-GP; 97163-GP; 97530-GP; A9270-GY; J0696; J1815-GY; J7042

== ENCOUNTER 2018-05-22 18:30 | Emergency (ER) | payer MEDICARE, BC ==
[2018-05-22] MEDS ORDERED: Sodium Chloride 0.9% 5 ML Syringe FLUSH PRN (18:36)
--- NOTE | 2018-05-22 18:43 | EDM.PDOC ---
ED HPI GENERAL MEDICAL PROBLEM - General Chief Complaint: Neurological Problem Stated Complaint: CONFUSION Time Seen by Provider: 05/22/18 18:30 Source of Information: Reports: EMS, Halfway Records, Old Records History Limitations: Reports: Altered Mental Status - History of Present Illness INITIAL COMMENTS - FREE TEXT/NARRATIVE: 83 YO WF transfered to ER by EMS with worsening confusion since this am. [facility] reports patient was confused today and was seen by provider who ordered outpatient MRI in am and UA-(negative for UTI). Pt with PMH of subarachnoid and subdural bleed after head injury from fall which occurred approx 2 months ago. Pt in NAD on inital assessment. Pt Alert to self without slurred speech, facial droop, or focal neurological deficits. Pt denies [place] or chest pain or any discomfort at this time. Initial vitals are stable and pt in NAD. Onset: Today Duration: Day(s): (1) Location: Reports: Generalized Severity: Mild Improves with: Reports: None Worsens with: Reports: None Associated Symptoms: Reports: Confusion. Denies: Chest Pain, Cough, Diaphoresis , Headaches, Nausea/Vomiting, Shortness of Breath, Syncope, Weakness - Related Data Allergies Allergy/AdvReac Type Severity Reaction Status Date / Time levofloxacin [From Levaquin] Allergy UNKNOWN Verified 05/22/18 18:50 Penicillins Allergy UNKNOWN Verified 05/22/18 18:50 [id number]-Ccm Reductase Allergy UNKNOWN Verified 05/22/18 18:50 Inhibitor Sulfa (Sulfonamide Allergy GI UPSET Verified 05/22/18 18:50 Antibiotics) Home Meds: Home Meds Levothyroxine 25 mcg PO ACBREAKFAST 04/07/16 [History] Losartan [Cozaar] 100 mg PO DAILY 06/09/16 [History] Carvedilol [Coreg] 12.5 mg PO BIDMEALS 03/01/18 [History] Lutein/Minerals/Vit A,C & E [Ocuvite] 2 tab PO DAILY 03/01/18 [History] metFORMIN [Glucophage] 500 mg PO BIDMEALS 03/01/18 [History] Acetaminophen [Tylenol Arthritis] 650 mg PO TIDAC 05/22/18 [History] Magnesium Hydroxide [Milk of Magnesia] 30 ml PO DAILY PRN 05/22/18 [History] Menthol [Bengay] 1 applic TOP Q8H PRN 05/22/18 [History] Polyethylene Glycol 3350 [MiraLAX] 17 gm PO DAILY 05/22/18 [History] Past Medical History HEENT History: Reports: Macular Degeneration Cardiovascular History: Reports: High Cholesterol, Hypertension, Pulmonary Hypertension, Other (See Below) Other Cardiovascular History: palpitations Genitourinary History: Reports: Urinary Incontinence 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 SETTER History: Reports: Neurological History: Reports: Head Trauma, Speech Problems, Other (See Below) Other Neuro History: subdural hematoma with subarachnoidal bleed Psychiatric History: Reports: None Endocrine/Metabolic History: Reports: Diabetes, Type II, Hypothyroidism Oncologic (Cancer) History: Reports: Basal Cell Carcinoma, Breast Dermatologic History: Reports: Other (See Below) Other Dermatologic History: basal cell cancer of the skin - Infectious Disease History Infectious Disease History: Reports: Other (See Below) Other Infectious Disease History: pt does not know - Past Surgical History HEENT Surgical History: Reports: None Cardiovascular Surgical History: Reports: None GI Surgical History: Reports: Cholecystectomy Female Surgical History: Reports: Breast Biopsy, Mastectomy Neurological Surgical History: Reports: None Musculoskeletal Surgical History: Reports: Knee Replacement Oncologic Surgical History: Reports: Biopsy of Breast, Mastectomy Dermatological Surgical History: Reports: Skin Biopsy Social & Family History - Family History Family Medical History: Noncontributory Cardiac: Reports: CAD (brother and sister) - Caffeine Use Caffeine Use: Reports: Coffee, Soda ED ROS GENERAL - Review of Systems Review Of Systems: See Below Constitutional: Reports: No Symptoms HEENT: Reports: No Symptoms Respiratory: Reports: No Symptoms Cardiovascular: Reports: No Symptoms Endocrine: Reports: No Symptoms GI/Abdominal: Reports: No Symptoms Musculoskeletal: Reports: No Symptoms Skin: Reports: No Symptoms Neurological: Reports: Confusion. Denies: Dizziness, Headache, Paresthesia, Seizure, Syncope, Tremors, Trouble Speaking, Weakness, Change in Speech Psychiatric: Reports: Confusion Hematologic/Lymphatic: Reports: No Symptoms Immunologic: Reports: No Symptoms - Physical Exam Exam: See Below Exam Limited By: Altered Mental Status General Appearance: Alert, WD/WN, No Apparent Distress Eye Exam: Bilateral Eye: EOMI Ears: Normal External Exam, Normal Canal, Hearing Grossly Normal, Normal TMs Nose: Normal Inspection, Normal Mucosa, No Blood Throat/Mouth: Normal Inspection, Normal Lips, Normal Teeth, Normal Gums, Normal Oropharynx, Normal Voice, No Airway Compromise Head Exam: Atraumatic, Normocephalic Neck: Normal Inspection, Supple, Non-Tender, Full Range of Motion Respiratory/Chest: No Respiratory Distress, Lungs Clear, Normal Breath Sounds, No Accessory Muscle Use, Chest Non-Tender Cardiovascular: Normal Peripheral Pulses, Regular Rate, Rhythm, No Edema, No Gallop, No JVD, No Murmur, No Rub GI/Abdominal: Normal Bowel Sounds, Soft, Non-Tender, No Organomegaly, No Distention, No Abnormal Bruit, No Mass Neuro Exam (Abbreviated): Alert, CN II-XII Intact, Normal Reflexes, No Motor/ Sensory Deficits, Confused Back Exam: Normal Inspection, Full Range of Motion, NT Extremities: Normal Inspection, Normal Range of Motion, Non-Tender, No Pedal Edema, Normal Capillary Refill Psychiatric: Normal Affect, Normal Mood Skin Exam: Warm, Dry, Intact, Normal Color, No Rash EKG INTERPRETATION EKG Date: 05/22/18 Time: 18:43 Rhythm: NSR Rate (Beats/Min): 70 [place]: LAD-Left [place] Deviation P-Wave: Present QRS: Normal ST-T: Normal QT: Normal Course - Vital Signs Last Recorded V/S: Last Vital Signs Temp 36.8 C 05/22/18 18:46 Pulse 69 05/22/18 19:30 Resp 22 H 05/22/18 19:30 BP 171/60 H 05/22/18 19:30 Pulse Ox 96 05/22/18 19:30 - Orders/Labs/Meds Orders: Active Orders 24 hr Category Date Time Status Cardiac Monitoring [RC] . DIRECTED Care 05/22/18 18:38 Active EKG Documentation Completion [RC] ASDIRECTED Care 05/22/18 18:37 Active Peripheral IV Care [RC] . DIRECTED Care 05/22/18 18:37 Active Chest 1V Frontal [CR] Stat Exams 05/22/18 18:36 Ordered Head wo Cont [CT] Stat Exams 05/22/18 18:36 Ordered CULTURE URINE [RM] Stat Lab 05/22/18 19:44 Ordered Sodium Chloride 0.9% [Syrex Flush] Med 05/22/18 18:36 Active 5 ml FLUSH Q8HR PRN Peripheral IV Insertion Adult [OM.PC] Routine Oth 05/22/18 18:36 Ordered EKG 12 Lead [EK] Routine Ther 05/22/18 18:36 Ordered Medication Orders Sodium Chloride (Syrex Flush) 5 ml FLUSH Q8HR PRN PRN Reason: Keep Vein Open Labs: Laboratory Tests 05/22/18 05/22/18 05/22/18 Range/Units 18:45 18:45 18:45 WBC 5.57 (5.00-10.00) 10^3/uL RBC 4.13 (3.80-5.50) 10^6/uL Hgb 13.1 (12.0-16.0) g/dL Hct 39.4 (37.0-47.0) % MCV 95.4 H D (82.0-92.0) fL MCH 31.7 H (27.0-31.0) pg MCHC 33.2 (32.0-36.0) g/dL RDW 13.1 (11.5-14.5) % Plt Count 286 (150-400) 10^3/uL MPV 9.6 (7.4-10.4) fL Immature Gran % (Auto) 0.2 (0.0-5.0) % Neut % (Auto) 54.8 (50.0-70.0) % Lymph % (Auto) 29.3 (20.0-40.0) % [place] % (Auto) 12.6 H (2.0-8.0) % Eos % (Auto) 2.7 (1.0-3.0) % Baso % (Auto) 0.4 (0.0-1.0) % Immature Gran # (Auto) 0.01 (0.00-0.50) 10^3/uL Neut # (Auto) 3.06 (2.50-7.00) 10^3/uL Lymph # (Auto) 1.63 (1.00-4.00) 10^3/uL [place] # (Auto) 0.70 (0.10-0.80) 10^3/uL Eos # (Auto) 0.15 (0.10-0.30) 10^3/uL Baso # (Auto) 0.02 (0.00-0.10) 10^3/uL PT 9.6 (8.9-11.4) SEC INR 0.9 (0.9-1.1) APTT 25.6 (20.8-31.2) SEC Sodium 140 (136-145) mmol/L Potassium 4.1 (3.3-5.3) mmol/L Chloride 101 (98-115) mmol/L Carbon Dioxide 32.7 H (21.0-32.0) mmol/L Anion Gap 10.4 (5-15) mmol/L BUN 11 (6-25) mg/dL Creatinine 0.53 (0.51-1.17) mg/dL Est Cr Clr Drug Dosing 85.45 mL/min Estimated GFR (MDRD) > 60 mL/min Glucose 120 mg/dL Calcium 8.6 L (8.7-10.3) mg/dL Total Bilirubin 0.3 (0.2-1.0) mg/dL AST 11 L (15-37) U/L ALT 12 (12-78) U/L Alkaline Phosphatase 186 H (46-116) IU/L Creatine Kinase 16 L (26-276) U/L CK-MB (CK-2) 0.60 (0.00-4.30) ng/mL Troponin I < 0.04 (0.00-0.070) ng/mL Total Protein 6.0 L (6.4-8.2) g/dL Albumin 2.55 L (3.00-4.80) g/dL Specimen Type Urine Color (YELLOW) Urine Appearance (CLEAR) Urine pH (5.0-9.0) Ur Specific [place] (1.005-1.030) Urine Protein (NEGATIVE) mg/dL Urine Glucose (UA) (NEGATIVE) mg/dL Urine Ketones (NEGATIVE) mg/dL Urine Occult Blood (NEGATIVE) Urine Nitrite (NEGATIVE) Urine Bilirubin (NEGATIVE) Urine Urobilinogen (0.2-1.0) E.U./dL Ur Leukocyte Esterase (NEGATIVE) Urine RBC /HPF Urine WBC /HPF Ur Epithelial Cells /LPF Urine Bacteria (NONE TO FEW) /HPF 05/22/18 Range/Units 19:30 WBC (5.00-10.00) 10^3/uL RBC (3.80-5.50) 10^6/uL Hgb (12.0-16.0) g/dL Hct (37.0-47.0) % MCV (82.0-92.0) fL MCH (27.0-31.0) pg MCHC (32.0-36.0) g/dL RDW (11.5-14.5) % Plt Count (150-400) 10^3/uL MPV (7.4-10.4) fL Immature Gran % (Auto) (0.0-5.0) % Neut % (Auto) (50.0-70.0) % Lymph % (Auto) (20.0-40.0) % [place] % (Auto) (2.0-8.0) % Eos % (Auto) (1.0-3.0) % Baso % (Auto) (0.0-1.0) % Immature Gran # (Auto) (0.00-0.50) 10^3/uL Neut # (Auto) (2.50-7.00) 10^3/uL Lymph # (Auto) (1.00-4.00) 10^3/uL [place] # (Auto) (0.10-0.80) 10^3/uL Eos # (Auto) (0.10-0.30) 10^3/uL Baso # (Auto) (0.00-0.10) 10^3/uL PT (8.9-11.4) SEC INR (0.9-1.1) APTT (20.8-31.2) SEC Sodium (136-145) mmol/L Potassium (3.3-5.3) mmol/L Chloride (98-115) mmol/L Carbon Dioxide (21.0-32.0) mmol/L Anion Gap (5-15) mmol/L BUN (6-25) mg/dL Creatinine (0.51-1.17) mg/dL Est Cr Clr Drug Dosing mL/min Estimated GFR (MDRD) mL/min Glucose mg/dL Calcium (8.7-10.3) mg/dL Total Bilirubin (0.2-1.0) mg/dL AST (15-37) U/L ALT (12-78) U/L Alkaline Phosphatase (46-116) IU/L Creatine Kinase (26-276) U/L CK-MB (CK-2) (0.00-4.30) ng/mL Troponin I (0.00-0.070) ng/mL Total Protein (6.4-8.2) g/dL Albumin (3.00-4.80) g/dL Specimen Type Urincath Urine Color Yellow (YELLOW) Urine Appearance Slightly cloudy H (CLEAR) Urine pH 6.0 (5.0-9.0) Ur Specific [place] 1.020 (1.005-1.030) Urine Protein Trace H (NEGATIVE) mg/dL Urine Glucose (UA) Negative (NEGATIVE) mg/dL Urine Ketones Trace H (NEGATIVE) mg/dL Urine Occult Blood Negative (NEGATIVE) Urine Nitrite Positive H (NEGATIVE) Urine Bilirubin Negative (NEGATIVE) Urine Urobilinogen 1.0 (0.2-1.0) E.U./dL Ur Leukocyte Esterase Negative (NEGATIVE) Urine RBC 0-5 /HPF Urine WBC 10-20 H /HPF Ur Epithelial Cells Few /LPF Urine Bacteria Many H (NONE TO FEW) /HPF Meds: Medications Generic Name Dose Route Start Last Admin Trade Name Freq PRN Reason Stop Dose Admin Sodium Chloride 5 ml 05/22/18 18:36 Syrex Flush FLUSH Q8HR PRN Keep Vein Open Discontinued Medications Generic Name Dose Route Start Last Admin Trade Name Freq PRN Reason Stop Dose Admin Trimethoprim/Sulfamethoxazole 1 tab 05/22/18 19:48 05/22/18 19:56 Septra Ds PO 05/22/18 19:49 1 tab ONETIME ONE Administration - Radiology Interpretation Free Text/Narrative:: CT Head- acute to subacute 9mm right and subacute 7mm left subdural hematomas. CXR- NAD Departure - Departure Time of Disposition: 20:16 Disposition: DC/Tfer to Medicaid [facility] 63 Condition: Fair Clinical Impression: Subdural hematoma Urinary tract infection Qualifiers: Urinary tract infection type: acute cystitis Hematuria presence: without hematuria Qualified Code(s): N30.00 - Acute cystitis without hematuria - Discharge Information Instructions: Urinary Tract Infection, Adult, [id number], Subdural Hematoma, Head Injury, Adult, [id number] Referrals: Karena Dacosta NP [Primary Care Provider] - Forms: ED Department Discharge Additional Instructions: 1. Discussed case with Dr Albarado neurosurgery- small bilateral subdurals which appear over 1 week old. recommended no acute management but will need follow up CT head in the next 2-4 weeks to make sure subdurals resolve completely. Hold all coagulation and notify senior care pt is a fall risk. 2. Discharge to NH- family in agreement with management 3. Septra DS 1 BID x 10 days for UTI 4. Hold all coagulation 5. Fall risk 6. follow up with Karena Dacosta for further management and treatment - My Orders Last 24 Hours: My Active Orders 05/22/18 18:36 Chest 1V Frontal [CR] Stat Head wo Cont [CT] Stat Sodium Chloride 0.9% [Syrex Flush] 5 ml FLUSH Q8HR PRN Peripheral IV Insertion Adult [OM.PC] Routine EKG 12 Lead [EK] Routine 05/22/18 18:37 EKG Documentation Completion [RC] ASDIRECTED Peripheral IV Care [RC] . DIRECTED 05/22/18 18:38 Cardiac Monitoring [RC] . DIRECTED 05/22/18 19:44 CULTURE URINE [RM] Stat - Assessment/Plan Last 24 Hours: My Active Orders 05/22/18 18:36 Chest 1V Frontal [CR] Stat Head wo Cont [CT] Stat Sodium Chloride 0.9% [Syrex Flush] 5 ml FLUSH Q8HR PRN Peripheral IV Insertion Adult [OM.PC] Routine EKG 12 Lead [EK] Routine 05/22/18 18:37 EKG Documentation Completion [RC] ASDIRECTED Peripheral IV Care [RC] . DIRECTED 05/22/18 18:38 Cardiac Monitoring [RC] . DIRECTED 05/22/18 19:44 CULTURE URINE [RM] Stat Assessment:: 1. Acute to subacute 9mm right and subacute 7mm left subdural hematomas 2. UTI Plan: 1. Discussed case with Dr Albarado neurosurgery- small bilateral subdurals which appear over 1 week old. recommended no acute management but will need follow up CT head in the next 2-4 weeks to make sure subdurals resolve completely. Hold all coagulation and notify senior care pt is a fall risk. 2. Discharge to NH- family in agreement with management 3. Septra DS 1 BID x 10 days for UTI 4. Hold all coagulation 5. Fall risk 6. follow up with Karena Dacosta for further management and treatment
[2018-05-22 19:23] LABS: ANION GAP 10.4 mmol/L (5-15); CHLORIDE,CL 101 mmol/L (98-115); SODIUM,NA 140 mmol/L (136-145)
[2018-05-22] MEDS: Sulfamethoxazole/Trimethoprim 800-160 MG Tab PO ONE (19:56)
[2018-05-22 20:07] VITALS: BP 159/49
== END 2018-05-22 20:30 ==
LOC: KA.ED 18:30
DX: I62.00 Nontraumatic subdural hemorrhage, unspecified (principal); N30.00 Acute cystitis without hematuria; I10 Essential (primary) hypertension; E11.9 Type 2 diabetes mellitus without complications; E03.9 Hypothyroidism, unspecified; Z79.84 Long term (current) use of oral hypoglycemic drugs; Z79.899 Other long term (current) drug therapy; Z88.2 Allergy status to sulfonamides; Z88.0 Allergy status to penicillin; Z88.1 Allergy status to other antibiotic agents; Z88.8 Allergy status to other drugs, medicaments and biological substances
CPT/HCPCS: 36415; 70450; 71045; 80053; 81001; 82550; 82553; 82962; 84484; 85025; 85610; 85730; 87086; 87088; 87186; 99285; A9270-GY

== ENCOUNTER 2018-11-10 09:33 | Emergency (ER) | payer MEDICARE, BC ==
[2018-11-10] MEDS ORDERED: Albuterol/Ipratropium 3.0-0.5 MG/3 ML Neb Soln NEB ONE (10:07)
[2018-11-10] MEDS ORDERED: Sodium Chloride 0.9% 1,000 ML IV ONE (10:07)
[2018-11-10] MEDS ORDERED: Albuterol 0.083% 2.5 MG/3 ML Neb Soln NEB ONE (10:07)
[2018-11-10] MEDS ORDERED: cefTRIAXone 1 GM Vial IVPUSH ONE (10:20)
[2018-11-10] MEDS ORDERED: cefTRIAXone 1 GM Vial ONE (10:22)
--- NOTE | 2018-11-10 10:30 | EDM.PDOC ---
ED HPI GENERAL MEDICAL PROBLEM - General Stated Complaint: RESPIRATORY DISTRESS?? Time Seen by Provider: 11/10/18 09:45 Source of Information: Reports: EMS History Limitations: Reports: Altered Mental Status (unresponsive) - History of Present Illness INITIAL COMMENTS - FREE TEXT/NARRATIVE: Patient brought via ambulance from [facility] unresponsive and dyspneic. Sats 51% on 15 liters O2 non-rebreather. EMS reports that patient has had a respiratory infection, is on azithromycin and was short of breath yesterday but sats were in the 90's. This morning she has been lethargic and sats in the 50' s. She is DNR per [place] records. We did DuoNeb followed by albuterol neb with minimal to no improvement. No family is here with her so I talked on the phone with her son Andrew (POA) who is trying to get here but is waiting for the neighbor to clear snow from the road out. He is not immediately sure whether he wants us to intubate and would like to call me back after discussing with his brother. - Related Data Allergies Allergy/AdvReac Type Severity Reaction Status Date / Time levofloxacin [From Levaquin] Allergy UNKNOWN Verified 11/10/18 10:20 Penicillins Allergy UNKNOWN Verified 11/10/18 10:20 [id number] Reductase Allergy UNKNOWN Verified 11/10/18 10:20 Inhibitor Sulfa (Sulfonamide Allergy GI UPSET Verified 11/10/18 10:20 Antibiotics) Home Meds: Home Meds Levothyroxine 25 mcg PO ACBREAKFAST 04/07/16 [History] Losartan [Cozaar] 100 mg PO DAILY 06/09/16 [History] Carvedilol [Coreg] 12.5 mg PO BIDMEALS 03/01/18 [History] Lutein/Minerals/Vit A,C & E [Ocuvite] 2 tab PO DAILY 03/01/18 [History] Acetaminophen [Tylenol Arthritis] 650 mg PO TIDAC 05/22/18 [History] Magnesium Hydroxide [Milk of Magnesia] 30 ml PO DAILY PRN 05/22/18 [History] Menthol [Bengay] 1 applic TOP Q8H PRN 05/22/18 [History] Acetaminophen [Tylenol Arthritis] 650 mg PO TIDAC 11/10/18 [History] Azithromycin [Zithromax] 250 mg PO DAILY 11/10/18 [History] Cetirizine [ZyrTEC] 10 mg PO DAILY 11/10/18 [History] Mirtazapine [Remeron] 15 mg PO BEDTIME 11/10/18 [History] amLODIPine [Norvasc] 5 mg PO DAILY 11/10/18 [History] Past Medical History HEENT History: Reports: Macular Degeneration Cardiovascular History: Reports: High Cholesterol, Hypertension, Pulmonary Hypertension, Other (See Below) Other Cardiovascular History: palpitations Genitourinary History: Reports: Urinary Incontinence 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: Neurological History: Reports: Head Trauma, Speech Problems, Other (See Below) Other Neuro History: subdural hematoma with subarachnoidal bleed Psychiatric History: Reports: None Endocrine/Metabolic History: Reports: Diabetes, Type II, Hypothyroidism Oncologic (Cancer) History: Reports: Basal Cell Carcinoma, Breast Dermatologic History: Reports: Other (See Below) Other Dermatologic History: basal cell cancer of the skin - Infectious Disease History Infectious Disease History: Reports: Other (See Below) Other Infectious Disease History: pt does not know - Past Surgical History HEENT Surgical History: Reports: None Cardiovascular Surgical History: Reports: None GI Surgical History: Reports: Cholecystectomy Female Surgical History: Reports: Breast Biopsy, Mastectomy Neurological Surgical History: Reports: None Musculoskeletal Surgical History: Reports: Knee Replacement Oncologic Surgical History: Reports: Biopsy of Breast, Mastectomy Dermatological Surgical History: Reports: Skin Biopsy Social & Family History - Family History Family Medical History: Noncontributory Cardiac: Reports: CAD (brother and sister) - Caffeine Use Caffeine Use: Reports: Coffee ED ROS GENERAL - Review of Systems Review Of Systems: Unable To Obtain ED EXAM, GENERAL - Physical Exam Exam: See Below Exam Limited By: Altered Mental Status General Appearance: Obtunded Eye Exam: Bilateral Eye: PERRL Ears: Normal External Exam, Normal Canal, Hearing Grossly Normal, Normal TMs Nose: Normal Inspection, No Blood Throat/Mouth: Normal Inspection, Normal Lips, Normal Voice, No Airway Compromise Head: Atraumatic, Normocephalic Neck: Normal Inspection, Supple, Non-Tender, Full Range of Motion. No: Carotid Bruit, Lymphadenopathy (L), Lymphadenopathy (R) Respiratory/Chest: Respiratory Distress, Decreased Breath Sounds, Crackles, Wheezing, Accessory Muscle Use. No: Stridor Cardiovascular: Regular Rate, Rhythm, Bradycardia (alternating with normal rate) GI/Abdominal: Normal Bowel Sounds, Soft, No Organomegaly, No Distention Extremities: Normal Inspection, No Pedal Edema Neurological: Unresponsive Skin Exam: Warm, Dry, Intact, Normal Color, No Rash Course - Vital Signs Last Recorded V/S: Last Vital Signs Temp 97.8 F 11/10/18 09:35 Pulse 52 L 11/10/18 11:29 Resp 29 H 11/10/18 11:29 BP 85/10 L 11/10/18 11:29 Pulse Ox 56 L 11/10/18 11:29 - Orders/Labs/Meds Orders: Active Orders 24 hr Category Date Time Status EKG Documentation Completion [RC] ASDIRECTED Care 11/10/18 10:06 Ordered RT Aerosol Therapy [RC] ASDIRECTED Care 11/10/18 10:07 Ordered Chest 1V Frontal [CR] Stat Exams 11/10/18 10:05 Ordered CULTURE BLOOD [BC] Stat Lab 11/10/18 10:06 Ordered CULTURE BLOOD [BC] Stat Lab 11/10/18 10:06 Ordered Sodium Chloride 0.9% @ 100 MLS/HR(1,000ml) Med 11/10/18 11:30 Ordered Sodium Chloride 0.9% [Normal Saline] 1,000 ml IV ASDIRECTED Blood Culture x2 Reflex Set [OM.PC] Stat Oth 11/10/18 10:05 Ordered EKG 12 Lead [EK] Routine Ther 11/10/18 10:05 Ordered Medication Orders Sodium Chloride (Normal Saline) 1,000 mls @ 100 mls/hr IV ASDIRECTED [facility] Labs: Laboratory Tests 11/10/18 11/10/18 11/10/18 Range/Units 10:00 10:00 10:00 WBC 21.26 H D (5.00-10.00) 10^3/uL RBC 4.28 (3.80-5.50) 10^6/uL Hgb 13.4 (12.0-16.0) g/dL Hct 44.5 (37.0-47.0) % MCV 104.0 H D (82.0-92.0) fL MCH 31.3 H (27.0-31.0) pg MCHC 30.1 L (32.0-36.0) g/dL RDW 13.7 (11.5-14.5) % Plt Count 382 D (150-400) 10^3/uL MPV 9.9 (7.4-10.4) fL Immature Gran % (Auto) 4.0 (0.0-5.0) % Neut % (Auto) 79.4 H (50.0-70.0) % Lymph % (Auto) 7.4 L (20.0-40.0) % [facility] % (Auto) 9.2 H (2.0-8.0) % Eos % (Auto) 0.0 L (1.0-3.0) % Baso % (Auto) 0.0 (0.0-1.0) % Immature Gran # (Auto) 0.86 H (0.00-0.50) 10^3/uL Neut # (Auto) 16.86 H (2.50-7.00) 10^3/uL Lymph # (Auto) 1.58 (1.00-4.00) 10^3/uL [facility] # (Auto) 1.95 H (0.10-0.80) 10^3/uL Eos # (Auto) 0.00 L (0.10-0.30) 10^3/uL Baso # (Auto) 0.01 (0.00-0.10) 10^3/uL Sodium 146 H (136-145) mmol/L Potassium 5.9 H D (3.3-5.3) mmol/L Chloride 104 (98-115) mmol/L Carbon Dioxide 35.4 H (21.0-32.0) mmol/L Anion Gap 12.5 (5-15) mmol/L BUN 45 H D (6-25) mg/dL Creatinine 1.05 (0.51-1.17) mg/dL Est Cr Clr Drug Dosing 40.23 mL/min Estimated GFR (MDRD) 50 mL/min Glucose 200 H (75 - 99) mg/dL Lactic Acid 1.4 (0.4-2.0) mmol/L Calcium 9.8 (8.7-10.3) mg/dL Troponin I < 0.04 (0.00-0.070) ng/mL B-Natriuretic Peptide (0-100) pg/mL 11/10/18 Range/Units 10:10 WBC (5.00-10.00) 10^3/uL RBC (3.80-5.50) 10^6/uL Hgb (12.0-16.0) g/dL Hct (37.0-47.0) % MCV (82.0-92.0) fL MCH (27.0-31.0) pg MCHC (32.0-36.0) g/dL RDW (11.5-14.5) % Plt Count (150-400) 10^3/uL MPV (7.4-10.4) fL Immature Gran % (Auto) (0.0-5.0) % Neut % (Auto) (50.0-70.0) % Lymph % (Auto) (20.0-40.0) % [facility] % (Auto) (2.0-8.0) % Eos % (Auto) (1.0-3.0) % Baso % (Auto) (0.0-1.0) % Immature Gran # (Auto) (0.00-0.50) 10^3/uL Neut # (Auto) (2.50-7.00) 10^3/uL Lymph # (Auto) (1.00-4.00) 10^3/uL [facility] # (Auto) (0.10-0.80) 10^3/uL Eos # (Auto) (0.10-0.30) 10^3/uL Baso # (Auto) (0.00-0.10) 10^3/uL Sodium (136-145) mmol/L Potassium (3.3-5.3) mmol/L Chloride (98-115) mmol/L Carbon Dioxide (21.0-32.0) mmol/L Anion Gap (5-15) mmol/L BUN (6-25) mg/dL Creatinine (0.51-1.17) mg/dL Est Cr Clr Drug Dosing mL/min Estimated GFR (MDRD) mL/min Glucose (75 - 99) mg/dL Lactic Acid (0.4-2.0) mmol/L Calcium (8.7-10.3) mg/dL Troponin I (0.00-0.070) ng/mL B-Natriuretic Peptide 305 H (0-100) pg/mL Meds: Medications Generic Name Dose Route Start Last Admin Trade Name Freq PRN Reason Stop Dose Admin Sodium Chloride 1,000 mls @ 100 mls/hr 11/10/18 11:30 Normal Saline IV ASDIRECTED ALE Discontinued Medications Generic Name Dose Route Start Last Admin Trade Name Freq PRN Reason Stop Dose Admin Albuterol 2.5 mg 11/10/18 10:07 11/10/18 10:00 Proventil Neb Soln NEB 11/10/18 10:08 2.5 mg ONETIME ONE Administration Albuterol/Ipratropium 3 ml 11/10/18 10:07 11/10/18 09:45 Duoneb 3.0-0.5 Mg/3 Ml NEB 11/10/18 10:08 3 ml ONETIME ONE Administration Ceftriaxone Sodium 1 gm 11/10/18 10:20 11/10/18 10:25 Rocephin IVPUSH 11/10/18 10:21 1 gm ONETIME ONE Administration Sodium Chloride 1,000 mls @ 999 mls/hr 11/10/18 10:07 11/10/18 10:15 Normal Saline IV 11/10/18 11:07 999 mls/hr .BOLUS ONE Administration Sodium Chloride 1,000 mls @ 100 mls/hr 11/10/18 11:30 11/10/18 11:27 Normal Saline IV 100 mls/hr ASDIRECTED ALE Administration - Re-Assessments/Exams Free Text/Narrative Re-Assessment/Exam: 11/10/18 10:37 We have done the DuoNeb and albuterol nebs, started IV saline, continued non- rebreather at 15 liters, placed oral and nasal airways to facilitate easier breathing. Patient remains unresponsive to any stimuli but still in NSR with tachypnea and shallow breathing. We tried manual bagging for several minutes which didn't raise sats higher than mid 60's. Twenty minutes have gone by since I talked with son and we haven't heard back from him so I called him again. He is on his way now but following behind the snowplow clearing his road. He hasn't been able to reach his brother but told he not to intubate as he knows his mother wouldn't want that. I told him the things we have done for her so far. 11/10/18 11:37 Son arrived and we discussed treatment options. They don't want her to be intubated or put on ventilator or transferred to [facility]. She is holding steady for now nearly two hours in ER. We discussed admitting to hospital and they agreed. Discussed case with Marvin Trujillo NP who accepted for admission and will come in shortly. 11/10/18 13:11 Shortly after patient was transferred to the hospital floor she stopped breathing and became pulseless. The nurse was with her and so was pt's son and SO. Marvin had not yet been in to see the patient so I visited with the family. I offered to call gold marker or assistant surveyor if they wished but they declined. They are comforted by the fact that she seemed to pass without any discomfort or pain. Since Marvin was not involved yet, we will reverse the order to admit and treat this like an extended ER. Departure - Departure Time of Disposition: 11:41 Disposition: Refer to Observation Condition: Poor Clinical Impression: Tachypnea, Bradycardia, Unresponsive state Pneumonia Qualifiers: Pneumonia type: due to unspecified organism Laterality: bilateral Lung location : unspecified part of lung Qualified Code(s): J18.9 - Pneumonia, unspecified organism Hypotension Qualifiers: Hypotension type: unspecified hypotension type Qualified Code(s): I95.9 - Hypotension, unspecified - Discharge Information - My Orders Last 24 Hours: My Active Orders 11/10/18 10:05 Chest 1V Frontal [CR] Stat Blood Culture x2 Reflex Set [OM.PC] Stat EKG 12 Lead [EK] Routine 11/10/18 10:06 EKG Documentation Completion [RC] ASDIRECTED CULTURE BLOOD [BC] Stat CULTURE BLOOD [BC] Stat 11/10/18 10:07 RT Aerosol Therapy [RC] ASDIRECTED 11/10/18 11:30 Sodium Chloride 0.9% @ 100 MLS/HR(1,000ml) Sodium Chloride 0.9% [Normal Saline] 1,000 ml IV ASDIRECTED - Assessment/Plan Last 24 Hours: My Active Orders 11/10/18 10:05 Chest 1V Frontal [CR] Stat Blood Culture x2 Reflex Set [OM.PC] Stat EKG 12 Lead [EK] Routine 11/10/18 10:06 EKG Documentation Completion [RC] ASDIRECTED CULTURE BLOOD [BC] Stat CULTURE BLOOD [BC] Stat 11/10/18 10:07 RT Aerosol Therapy [RC] ASDIRECTED 11/10/18 11:30 Sodium Chloride 0.9% @ 100 MLS/HR(1,000ml) Sodium Chloride 0.9% [Normal Saline] 1,000 ml IV ASDIRECTED
[2018-11-10 10:44] LABS: ANION GAP 12.5 mmol/L (5-15); CHLORIDE,CL 104 mmol/L (98-115); SODIUM,NA 146 mmol/L (136-145)
[2018-11-10] MEDS ORDERED: Sodium Chloride 0.9% 1,000 ML ONE ×2 (11:18→11:23)
[2018-11-10 11:30] VITALS: BP 85/10
[2018-11-10] MEDS ORDERED: Sodium Chloride 0.9% 1,000 ML IV SCH ×2 (11:30)
--- NOTE | 2018-11-10 14:19 | CR ---
[id number] RAD/RAD Chest PA or AP 1V EXAM: RAD Chest PA or AP 1V INDICATION: DYSPNEA. COMPARISON: May 22, 2018. DISCUSSION: Cardiomediastinal silhouette is enlarged but stable. Low lung volumes. Small moderate bilateral pleural effusions. Pulmonary vascular congestion with patchy airspace opacifications bilaterally. Underlying infiltrates are not excluded. No pneumothorax. IMPRESSION: Findings consistent with congestive heart failure exacerbation. Lupillo Dowling DO 11/10/18 1110 Thank you for allowing us to participate in the care of your patient.
== END 2018-11-10 11:50 | disposition expired ==
LOC: KA.ED 09:33 → KA.MS 11:35 → UNDOADMOB 11:35
DX: J18.9 Pneumonia, unspecified organism (principal); I95.9 Hypotension, unspecified; R06.82 Tachypnea, not elsewhere classified; R00.1 Bradycardia, unspecified; E78.00 Pure hypercholesterolemia, unspecified; I10 Essential (primary) hypertension; E11.9 Type 2 diabetes mellitus without complications; E03.9 Hypothyroidism, unspecified; Z88.1 Allergy status to other antibiotic agents; Z88.0 Allergy status to penicillin; Z88.2 Allergy status to sulfonamides; Z79.899 Other long term (current) drug therapy
CPT/HCPCS: 36415; 71045; 80048; 83605; 83880; 84484; 85025; 87040; 93005; 94640; 96361; 96374; 99285-25; J0696; J7030; J7613-GY; J7620-GY